=== PATIENT | female | born 2000 | race African-American/Black ===

== ENCOUNTER 2019-08-25 09:22 | Emergency (ER) | payer OTHER ==
[~2019-08-25] VITALS: Ht 157.5 cm; Wt 63.6 kg
[2019-08-25 09:26] VITALS: BP 121/60
[2019-08-25] MEDS ORDERED: LIDOCAINE-MPF 1%, 5ML ONE (09:37)
[2019-08-25] MEDS ORDERED: L.E.T SOLUTION TP ONE ×2 (09:44→10:00)
[2019-08-25] MEDS ORDERED: HYDROcodone/APAP 5/325 TABLET ONE (10:40)
[2019-08-25] MEDS ORDERED: CEFTRIAXONE 1,000 MG ONE (10:41)
[2019-08-25] MEDS ORDERED: LIDOCAINE-MPF 1%, 2ML ONE (10:41)
[2019-08-25] MEDS ORDERED: HYDROcodone/APAP 5/325 TABLET PO ONE (11:00)
[2019-08-25] MEDS ORDERED: CEFTRIAXONE 1,000 MG IM ONE (11:00)
[2019-08-25] MEDS ORDERED: CEFTRIAXONE PMX 1GM/50ML 50 ML IV ONE (11:00)
== END 2019-08-25 11:14 | disposition home or self-care (01) ==
LOC: ED 10:50
DX: L03.011 Cellulitis of right finger (principal)
CPT/HCPCS: 10060; 73140; 96372; 99283; J0696

== ENCOUNTER 2019-08-26 09:24 | Emergency (ER) | payer SELFPAY ==
[~2019-08-26] VITALS: Ht 157.5 cm; Wt 63.0 kg
[2019-08-26 09:54] VITALS: BP 114/72
--- NOTE | 2019-08-26 10:12 | NUR ---
PT AMBULATORY TO ROOM 10 FOR RECHECK OF R INDEX FINGER PARONYCHIA. PT STATES SHE SUSTAINED A DIRECT BLOW TO FINGER. PT WAS TOLD TO COME BACK TO ED FOR RECHECK. PT IS ALSO CURRENTLY ON ABX. PT RESTING ON GURNEY. OBRIEN.
[2019-08-26] MEDS ORDERED: NEOSPORIN OINT. PKT 1 PACKET ONE (10:27)
== END 2019-08-26 10:35 | disposition home or self-care (01) ==
LOC: ED 10:30
DX: L03.011 Cellulitis of right finger (principal)
CPT/HCPCS: 99281